=== PATIENT | male | born 2000 | race Asian ===

== ENCOUNTER 2024-03-07 07:36 | Emergency (ER) | payer OTHER ==
[~2024-03-07] VITALS: Ht 167.6 cm; Wt 59.1 kg
[2024-03-07 07:43] VITALS: TEMP 97.5
[2024-03-07] MEDS ORDERED: NS 1,000 ML IV ONE (08:00)
[2024-03-07] MEDS ORDERED: Ketorolac 15 MG/ML VIAL IV ONE (08:00)
[2024-03-07] MEDS ORDERED: Ondansetron 4 MG/2 ML VIAL IV ONE (08:00)
[2024-03-07] MEDS ORDERED: Iohexol 300 - 100 ML VIAL IV ONE (08:27)
[2024-03-07] MEDS ORDERED: NS 100 ML IV SCH (08:28)
[2024-03-07 08:39] LABS: COLLECTION METHOD CLEAN CATCH
[2024-03-07 08:45] LABS: HEMATOCRIT 45.7 % (42.0-52.0); HEMOGLOBIN 15.6 g/dl (13.5-18.0); MEAN CELL VOLUME 94 fl (80.0-100.0); MEAN CORPUSCULAR HEMOGLOBIN 32 pg (27-31); MEAN CORPUSCULAR HGB CONC 34 g/dl (33.0-37.0); PLATELET COUNT 156 K/mm3 (130-400); RED BLOOD COUNT 4.85 M/mm3 (4.20-5.60); REDCELL DISTRIBUTION WIDTH-CV 12.7 % (11.5-14.5)
[2024-03-07 09:00] LABS: ALANINE AMINOTRANSFERASE 16 U/L (0-55); ALBUMIN 3.8 g/dL (3.5-5.0); ALKALINE PHOSPHATASE 62 U/L (40-150); ANION GAP 11 mmol/L (7-16); AST,SGOT 25 U/L (5-34); BILIRUBIN,TOTAL 0.7 mg/dL (0.2-1.2); BLOOD UREA NITROGEN 19 mg/dL (9-21); CALCIUM 8.8 mg/dL (8.4-10.2); CHLORIDE 104 mEq/L (98-107); CREATININE, serum 1.17 mg/dL (0.72-1.25); GLUCOSE 110 mg/dL (70-99); LIPASE 21 U/L (8-78); POTASSIUM 3.5 mEq/L (3.5-4.5); SODIUM 139 mEq/L (136-145); TOTAL PROTEIN 6.9 g/dl (6.2-8.1)
[2024-03-07 09:03] LABS: C-REACTIVE PROTEIN < 0.02 mg/dL (0.00-0.50)
[2024-03-07 09:05] VITALS: BP 132/80
[2024-03-07 09:11] LABS: URINE APPEARANCE CLEAR (CLEAR/HAZY); URINE BLOOD NEGATIVE (NEGATIVE); URINE COLOR YELLOW (YELLOW); URINE GLUCOSE NEGATIVE (NEGATIVE); URINE KETONE TRACE (NEGATIVE); URINE NITRATE NEGATIVE (NEGATIVE); URINE PROTEIN(semi-quant) TRACE (NEGATIVE)
[2024-03-07] MEDS ORDERED: Home Ondansetron ODT 4 MG #2 ODT/PACK PO ONE (09:15)
[2024-03-07 09:28] VITALS: PULSE 45
== END 2024-03-07 09:28 | disposition home or self-care (01) ==
LOC: COL.ER 07:36
PROVIDERS: Emergency Medicine
DX: K52.9 Noninfective gastroenteritis and colitis, unspecified (principal)
CPT/HCPCS: J1885; J2405; J7030; Q9967